=== PATIENT | female | born 1955 | race Two or more races ===

== ENCOUNTER 2019-01-29 14:25 | Inpatient (IN) | payer OTHER ==
[~2019-01-29] VITALS: Ht 167.6 cm; Wt 95.3 kg
[2019-02-10] MEDS ORDERED: GABAPENTIN800 MG PO (13:42)
[2019-02-10] MEDS ORDERED: FIORICET (13:43)
[2019-02-10] MEDS ORDERED: MECLIZINE HCL25 M1 PO (13:43)
[2019-02-10] MEDS ORDERED: BREO ELLIPTA 21 EACH IH (13:44)
[2019-02-10] MEDS ORDERED: ALBUTEROL0.63 MG/3 IH (13:44)
[2019-02-10] MEDS ORDERED: CENTRUM SILVER1 EAC5 PO (13:45)
[2019-02-10] MEDS ORDERED: DOLOGESIC-DF 51 EACH PO (13:45)
[2019-02-15] MEDS ORDERED: BUTALBIT-ACETA1 EACH (09:04)
[2019-02-20] MEDS ORDERED: OXYC1TAB9 PO (11:30)
== END 2019-02-20 12:06 | disposition home or self-care (01) | DRG 331 ==
LOC: SURG 02-10 14:15 → O/R 02-15 06:52 → SURG 02-15 06:52
PROVIDERS: ADMIT Surgery
PROC: 07TB4ZZ Resection of Mesenteric Lymphatic, Percutaneous Endoscopic Approach (ICD-10-PCS; 2019-02-15)
PROC: 4A033R1 Measurement of Arterial Saturation, Peripheral, Percutaneous Approach (ICD-10-PCS; 2019-02-15)
PROC: 3E0F7GC Introduction of Other Therapeutic Substance into Respiratory Tract, Via Natural or Artificial Opening (ICD-10-PCS; 2019-02-15)
PROC: 4A12X4Z Monitoring of Cardiac Electrical Activity, External Approach (ICD-10-PCS; 2019-02-15)
PROC: 0DTF4ZZ Resection of Right Large Intestine, Percutaneous Endoscopic Approach (ICD-10-PCS; principal; 2019-02-15 12:00)
DX: D12.0 Benign neoplasm of cecum (principal); I11.9 Hypertensive heart disease without heart failure; J45.20 Mild intermittent asthma, uncomplicated; G47.33 Obstructive sleep apnea (adult) (pediatric); E66.8 Other obesity